=== PATIENT | male | born 1955 | race Caucasian/White ===

== ENCOUNTER → 2022-08-20 | Outpatient (CLI) | payer OTHER ==
[~2022-08-20] MED LIST: ALBU90OI INH; AMLO10 PO; ASPI81CH PO; ATOR40TA PO; Flomax0.4 MG PO; HYDR1TAB94 PO; NAPR500 PO; Norco 5-325 Ta1 EACH PO; ONDA4ODT MM; RXSULTRIDS PO; SULTRIDS PO; TRAM50 PO
[2022-08-20 20:01] LABS: Anion Gap 7 mmol/L (6-16); Blood Urea Nitrogen 13 mg/dL (8-24); Bun/Creatinine Ratio 13.1 (12.0-20.0); CHOL/HDL RATIO 4.3; CO2, Blood 23 mmol/L (21-32); Chloride, Blood 111 mmol/L (98-108); Cholesterol 163 mg/dL (50-200); Glomerular Filtration Rate 82 (60-); Glucose, Blood 103 mg/dL (70-99); HDL Cholesterol 38 mg/dL (>39); LDL/HDL RATIO 2.7; Low Density Lipoprotein Chol 104 mg/dL (0-110); Potassium, Blood 3.8 mmol/L (3.5-5.5); Sodium, Blood 141 mmol/L (136-145); Triglycerides 106 mg/dL (30-160); Very Low Density Lipoprot Chol 21 mg/dL (6-32)
[2022-08-20 21:39] LABS: BASOPHILS ABSOLUTE AUTO 0.07 K/mm3 (0.00-0.23); BASOPHILS PERCENT AUTO 1 % (0-2); EOSINOPHILS ABSOLUTE AUTO 0.19 K/mm3 (0.00-0.68); EOSINOPHILS PERCENT AUTO 2 % (0-6); Hematocrit 44.2 % (37.0-53.0); Hemoglobin 15.5 g/dL (13.5-17.5); IMMATURE GRAN ABSOLUTE AUTO 0.03 K/mm3 (0.00-0.10); IMMATURE GRAN PERCENT AUTO 0 % (0-1); LYMPHOCYTES ABSOLUTE AUTO 2.34 K/mm3 (0.84-5.20); LYMPHOCYTES PERCENT AUTO 27 % (21-46); MONOCYTES ABSOLUTE AUTO 0.49 K/mm3 (0.16-1.47); MONOCYTES PERCENT AUTO 6 % (4-13); Mean Corpuscular HGB 32.6 pg (26.0-34.0); Mean Corpuscular HGB Conc 35.1 g/dL (31.5-36.5); Mean Corpuscular Volume 93 fL (80-100); Mean Platelet Volume 10.2 fL (9.1-12.4); NEUTROPHILS ABSOLUTE AUTO 5.55 K/mm3 (1.96-9.15); NEUTROPHILS PERCENT AUTO 64 % (41-73); Platelet Count 232 K/mm3 (150-400); RDW Coefficient Variation 13.4 % (11.7-14.2); Red Blood Cell Count 4.75 M/mm3 (4.30-5.90); White Blood Cell Count 8.67 K/mm3 (4.00-11.30)
== END | disposition home or self-care (01) ==
LOC: LAB 18:40 → LAB SHORT 18:40
PROVIDERS: Internal Medicine
DX: J44.9 Chronic obstructive pulmonary disease, unspecified (principal); I10 Essential (primary) hypertension; R73.09 Other abnormal glucose
CPT/HCPCS: 80048; 80061; 83036; 84443; 85025

== ENCOUNTER 2023-07-18 05:24 | Emergency (ER) | payer OTHER ==
[~2023-07-18] VITALS: Ht 180.3 cm; Wt 108.9 kg
[2023-07-18] MEDS ORDERED: DRAMAMINE25 M3 PO (05:37)
[2023-07-18] MEDS ORDERED: STIOLTO RESPIMAT4 G1 IH (05:37)
[2023-07-18] MEDS ORDERED: Lactated Ringer's 1,000 ML IV ONE (05:45)
[2023-07-18 05:48] LABS: BASOPHILS ABSOLUTE AUTO 0.05 K/mm3 (0.00-0.23); BASOPHILS PERCENT AUTO 1 % (0-2); EOSINOPHILS ABSOLUTE AUTO 0.16 K/mm3 (0.00-0.68); EOSINOPHILS PERCENT AUTO 2 % (0-6); Hematocrit 40.4 % (37.0-53.0); Hemoglobin 13.6 g/dL (13.5-17.5); IMMATURE GRAN ABSOLUTE AUTO 0.03 K/mm3 (0.00-0.10); IMMATURE GRAN PERCENT AUTO 0 % (0-1); LYMPHOCYTES ABSOLUTE AUTO 1.88 K/mm3 (0.84-5.20); LYMPHOCYTES PERCENT AUTO 23 % (21-46); MONOCYTES ABSOLUTE AUTO 0.62 K/mm3 (0.16-1.47); MONOCYTES PERCENT AUTO 8 % (4-13); Mean Corpuscular HGB 32.9 pg (26.0-34.0); Mean Corpuscular HGB Conc 33.7 g/dL (31.5-36.5); Mean Corpuscular Volume 98 fL (80-100); Mean Platelet Volume 9.4 fL (9.1-12.4); NEUTROPHILS ABSOLUTE AUTO 5.46 K/mm3 (1.96-9.15); NEUTROPHILS PERCENT AUTO 67 % (41-73); Platelet Count 137 K/mm3 (150-400); RDW Standard Deviation 50.5 fL (35.1-46.3); Red Blood Cell Count 4.14 M/mm3 (4.30-5.90)
[2023-07-18] MEDS ORDERED: METOPROLOL SUCC25 MG PO (05:58)
[2023-07-18] MEDS ORDERED: LISI20 PO (05:58)
[2023-07-18 06:14] LABS: Albumin, Blood 2.9 g/dL (3.4-5.0); Albumin/Globulin Ratio 1.1 (0.8-1.8); Bilirubin, Total 0.6 mg/dL (0.1-1.0); Bun/Creatinine Ratio 13.1 (12.0-20.0); Calcium, Blood 7.4 mg/dL (8.5-10.1); Creatinine, Blood 1.07 mg/dL (0.60-1.20); Globulin, Blood 2.7 g/dL (2.2-4.0); Potassium, Blood 3.9 mmol/L (3.5-5.5); Total Protein, Blood 5.6 g/dL (6.4-8.2)
[2023-07-18] MEDS ORDERED: Calcium Gluconate 10% 1,000 MG in NS 50 ML IV ONE (06:40)
[2023-07-18] MEDS ORDERED: CALCIUM GLUC IN NACL, ISO-OSM 50 ML IV ONE (07:00)
[2023-07-18 09:11] LABS: Source, Urine Clean Catch
[2023-07-18 09:21] LABS: Appearance, Urine Clear (Clear); Bilirubin, Urine Neg (Neg); Blood, Urine 2+ (Neg); Color, Urine Yellow (P-Yellow); Glucose Qualitative, Urine Neg (Neg); Ketones, Urine Neg (Neg); Leukocyte Esterase, Urine 1+ (Neg); Nitrite, Urine Neg (Neg); Protein, Urine Neg (Neg); Specific Gravity, Urine 1.015 (1.003-1.022); Urobilinogen, Urine 1+ (Normal)
[2023-07-18 09:30] LABS: White Blood Cells, Urine 0-2 /hpf (0-5)
[2023-07-18 09:31] LABS: Bacteria Rare /hpf; Squamous Epithelial Cells Not Seen /hpf (Few)
[2023-07-18 11:33] VITALS: BP 134/82
== END 2023-07-18 11:36 | disposition home or self-care (01) ==
LOC: ER 05:24
PROVIDERS: Emergency Medicine
DX: N13.2 Hydronephrosis with renal and ureteral calculous obstruction (principal); E83.51 Hypocalcemia; Z79.899 Other long term (current) drug therapy; I25.10 Atherosclerotic heart disease of native coronary artery without angina pectoris; G47.33 Obstructive sleep apnea (adult) (pediatric); I10 Essential (primary) hypertension; F17.210 Nicotine dependence, cigarettes, uncomplicated
CPT/HCPCS: 74176; 76857; 80053; 81001; 83690; 85025; 87086; 93005; 93010; 96361; 96374; 99285-25; J0612; J7120

== ENCOUNTER 2024-04-23 09:34 | Day surgery (SDC) | payer OTHER ==
[~2024-04-23] VITALS: Ht 180.3 cm; Wt 105.0 kg
[2024-04-23] VITALS (11 sets, daily range): BP systolic 121–164; BP diastolic 82–99
[~2024-04-23 09:34] MED LIST changes: +DRAMAMINE25 M3 PO; +LISI20 PO; +METOPROLOL SUCC25 MG PO; +STIOLTO RESPIMAT4 G1 IH
[2024-04-23] MEDS ORDERED: ALBU90OI INH (09:52)
[2024-04-23] MEDS ORDERED: Verapamil HCL 2.5 MG/ML 2ML Injection ONE (10:24)
[2024-04-23] MEDS ORDERED: Heparin Sodium 1000 Units/ML 10ML MDV ONE (10:25)
[2024-04-23] MEDS ORDERED: Nitroglycerin 2 MG/20 ML BTL ONE (10:25)
[2024-04-23] MEDS ORDERED: NS 250 ML IV ONE (10:25)
[2024-04-23] MEDS ORDERED: NS 1,000 ML IV ONE (10:25)
[2024-04-23] MEDS ORDERED: Midazolam HCl 1MG / ML 2ML Vial ONE (10:39)
[2024-04-23] MEDS ORDERED: FentaNYL Citrate 50 MCG/ML 2 ML Injection ONE (10:40)
[2024-04-23] MEDS ORDERED: NS 500 ML IV ONE (10:40)
--- NOTE | 2024-04-23 10:55 | NUR ---
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 PROVIDER IN EARLIER.
--- NOTE | 2024-04-23 13:02 | NUR ---
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 A&O, denies dicsomfort. TR band in place no hematoma, no bleeding.venous right heart cath site dressed and dressing D&I, no sweelling, no bleeding.
--- NOTE | 2024-04-23 13:44 | NUR ---
PT SITTING IN RECLINER TALKING WITH FAMILY. R RAD TR BAND SITE SOFT NON-TENDER WITH NO HEMATOMA, NO PULSATILE BLEEDING AND RIGHT WRIST BOARD IN PLACE. PT DENIES CHEST PAIN. CALL LIGHT IN REACH.
[2024-04-23] MEDS ORDERED: TORSE20 PO (13:51)
--- NOTE | 2024-04-23 14:38 | NUR ---
10 CC OF AIR REMOVED OUT OF NOW DEFLATED RIGHT RAD TR BAND OVER 10 MIN STARTING AT 1425. R RAD SITE STILL SOFT NON-TENDER WITH NO HEMATOMA, NO PULSATILE BLEEDING AND WRIST BOARD IN PLACE. R AC VENOUS SITE SOFT NON-TENDER WITH INTACT DRESSING WITH CARLOS AND INTACT DRESSING WITH SLIGHT TRACT OOZING NOTED.
--- NOTE | 2024-04-23 15:08 | NUR ---
NO CHANGES TO R RAD OR R AC SITES.
--- NOTE | 2024-04-23 15:35 | NUR ---
DEFLATED R TR BAND REMOVED AND POLYMEM PLACED OVER R RAD SITE WITH WRIST BOARD IN PLACE. NO CHANGES TO R RAD OR R AC SITES. 20 G IV DISCONTINUED FROM LEFT AC WITH INTACT CANNULA. PT ESCORTED OUT VIA WHEELCHAIR ESCORT.
== END 2024-04-23 16:50 | disposition home or self-care (01) ==
LOC: MHTC 09:34 → EDSTATUS 10:36 → MHTC 16:50
DX: I71.21 Aneurysm of the ascending aorta, without rupture (principal); I35.0 Nonrheumatic aortic (valve) stenosis; I49.5 Sick sinus syndrome; I10 Essential (primary) hypertension; G47.33 Obstructive sleep apnea (adult) (pediatric); F17.210 Nicotine dependence, cigarettes, uncomplicated; J44.9 Chronic obstructive pulmonary disease, unspecified; I27.20 Pulmonary hypertension, unspecified; I25.10 Atherosclerotic heart disease of native coronary artery without angina pectoris; Z95.0 Presence of cardiac pacemaker
CPT/HCPCS: 76937; 93456; 99152; 99153; C1769; C1887; C1894; J1644; J2250; J3010; J7030; J7040; J7050; Q9967